=== PATIENT | female | born 1980 | race Caucasian/White ===

== ENCOUNTER → 2024-05-03 | Outpatient (CLI) | payer MEDICAID, SELFPAY ==
--- NOTE | 2024-05-03 08:23 | RAD_ITS ---
PROCEDURE: SMALL BOWEL SERIES DATE OF EXAMINATION: May 03, 2024. INDICATION: Female, 44 years old. Crohn''s disease. PHYSICIAN: Jose Riggins M.D. FLUOROSCOPY TIME (if supplied): (0:09) minutes/seconds. 24.5 mGy.. 11 images were submitted. TECHNIQUE: Radiographic and fluoroscopic images were taken of the small intestine following the ingestion of barium. COMPARISON: None. FINDINGS: A preliminary supine KUB was obtained. There is an unremarkable bowel gas pattern. Fecal material is present throughout the colon. Phleboliths are present within the pelvis. The lung bases are unremarkable. The osseous structures are normal. The patient orally ingested approximately 12 ounces of thin barium Normal visualized fundus, body, and antrum of the stomach. Normal duodenal bulb, C-loop, and proximal jejunum. Normal visualized mucosal folds of the jejunum and ileum. There are no demonstrated dilatations, strictures, or masses of the small intestine. There is no mass displacement of the loops of small intestine. There is a normal motor pattern with barium reaching the colon within approximately 60 minutes. Spot films under fluoroscopic observation demonstrated segmental circumferential narrowing of the distal and terminal ileum with evidence of a separation of small bowel loops and the ulcerations of the terminal ileum. Findings are in keeping with the terminal ileitis and Crohn''s disease. RAD/Small Bowel Series Only IMPRESSION: Circumferential narrowing with abnormal mucosal appearance and the ulcerations with separation of bowel loops in the right lower quadrant in keeping with the patient''s diagnosis of Crohn''s disease. Electronically Signed: Jose Riggins MD at 10:57 EDT ,
== END | disposition home or self-care (01) ==
LOC: RAD 08:21
DX: K50.90 Crohn's disease, unspecified, without complications (principal)
CPT/HCPCS: 74250

== ENCOUNTER 2024-08-24 22:42 | Emergency (ER) | payer MEDICAID, SELFPAY ==
[2024-08-24 22:42] VITALS: BP 165/88; PULSE 83; RESP 16; TEMP 36.5; O2SAT 100; BMI 27.4
[2024-08-25] MEDS: Metoclopramide 10 MG/2 ML Vial 5 MG IV (00:25)
[2024-08-25] MEDS: Ketorolac 15 MG/ML Vial IV (00:25)
[2024-08-25] MEDS: dexAMETHasone 4 MG/ML Vial IV (00:25)
[2024-08-25] MEDS: 0.9% Normal Saline (500mL Bag) 500 ML 999 ML IV (00:26)
--- NOTE | 2024-08-25 01:00 | EX.ED.DYSGE1 ---
HPI History of Present Illness Chief Complaint: Headache [facility] Medical History (Updated 08/25/24 @ 00:05 by Marcelina Tang) Crohn disease Home Medications ?Medication ?Instructions ?Recorded ?Last Taken ?Type NK 08/25/24 Unknown History metoclopramide HCl 5 mg tablet 5 mg PO Q8H PRN PRN nausea and 08/25/24 Unknown Rx (Reglan) vomiting #10 tabs Allergy/AdvReac Type Severity Reaction Status Date / Time ondansetron (From Zofran) AdvReac LONG QT Verified 08/25/24 00:24 Social History Smoking Status: Heavy Smoker (>10/day) EXAM Physical Exam Const Vital Signs: 08/24/24 22:42 Temperature 97.7 F L Temperature Source Oral Pulse Rate 83 Respiratory Rate 16 Blood Pressure 165/88 H Blood Pressure Mean 113 Pulse Ox 100 Oxygen Delivery Method Room Air [facility] [place] Narr[place] Medical decision making narrative: HISTORY OF PRESENT ILLNESS: 44year old female presents with headache. No severe right-sided headache that came on gradually 1 week ago. Denies neck stiffness, neck pain, fever. Denies falls or trauma. Denies family or personal history of brain aneurysms. Patient denies sudden onset or thunderclap headache, denies maximal intensity within 1 minute, vomiting, neck pain or stiffness, changes in vision, fever, history malignancy, syncope, seizures. REVIEW OF SYSTEMS: All other systems reviewed and are negative except as noted in the history of present illness. At least 10 review of systems reviewed and are negative except as noted in history of present illness. PHYSICAL EXAM: Nursing triage notes reviewed, Vital signs reviewed Constitutional: please see [facility] HENT: MMM Eyes: Pupils equal round and reactive to light, Extraocular muscles intact Neck: No stridor, no JVD, full neck ROM, no carotid bruits Lungs: Clear to auscultation, No wheezing or rales. No increased work of breathing, no conversational dyspnea, no accessory muscle use, no nasal flaring. No respiratory distress noted Heart: Regular rate and rhythm, No murmurs, No rubs and No gallops, 2+ distal pulses (radial, femoral, posterior tibial) in all extremities Abdomen: Soft, there is no tenderness, rigidity, rebound or guarding, no obvious peritoneal signs, no palpable pulsatile abdominal masses, no auscultated abdominal bruit : No CVAT Extremities: No edema Neuro: Alert and oriented x3, neuro exam at baseline, cranial nerves II through XII are intact. No pain with extraocular muscle movement. There is negative test of skew. Normal speech. 5 of 5 strength in upper and lower extremities in flexion extension. Intact sensation to light touch in upper and lower extremity dermatomes. No truncal or extremity ataxia. No dysdiadochokinesia. Normal gait. 2+ reflexes. No meningeal signs. Negative Babinski. NIH of 0 Skin: No rash or lesions noted MEDICAL DECISION MAKING: Chief Complaint: Headache External records reviewed: none Factors affecting care: none Social determinants of health: none History obtained from others: none Consults: none ALL IMAGES (IF OBTAINED) HAVE BEEN PERSONALLY REVIEWED AND INTERPRETED BY MYSELF. MDM Narrative: The patient was initially hemodynamically stable, afebrile and nontoxic-appearing. Exam without focal neurologic deficits. No stigmata of meningitis, carotid artery dissection, subarachnoid hemorrhage or other ICH. I considered the following differential diagnosis: Subarachnoid hemorrhage, epidural hematoma, ICH, meningitis, carotid artery dissection, primary headache (primary headache, migraine, tension headache, cluster headache) Patient was initially treated with IV Reglan, Toradol, fluids and Decadron. She noted symptomatic improvement after these interventions. The patient looks great and is in no significant objective discomfort currently. The patient's headache is non-specific. Exam is unremarkable. The patient is in no distress and the patient?s neurological exam is non-focal, neck is supple and without meningismus. The headache is not consistent with meningitis or infection, nor is it consistent with intracranial bleed (SAH etc.), carotid dissection, nor mass by history and examination. Medication and outpatient follow-up was instructed. The patient was instructed to return as needed or if symptoms changed or worsened, fever developed or inability to tolerate fluids. The patient agreed with plan. Gave close neurology follow-up. Wrote a prescription for Reglan. The patient and/or family, caregivers express understanding. The patient and/or family, caregivers agrees with the plan. Total critical care time today provided was at least 0 minutes. This excludes separately billable procedures. Critical care time (if documented) is secondary to the patient having high probability of clinically significant/life threatening deterioration in the patient's condition which required my urgent intervention. Shared decision making: I will have a discussion with the patient and or visitors regarding risk/benefits of further testing or admission. They will be made aware of of the risk/benefits inherent in this decision they will be given the opportunity to voice understanding. Impression: 1. Acute Headache 2. Cluster headache Disposition: Discharge home This note was generated with Loggly dictation software. It may contain incorrect words, spelling, and punctuation that were not noted in review of the chart prior to signing. Discharge Plan Triage Chief Complaint: Headache ED Provider: Jose Ferraro Dx/Rx/DC Orders Instructions: ED Headache, Cluster Prescriptions: New metoclopramide HCl [Reglan] 5 mg tablet 5 mg PO Q8H PRN PRN (Reason: nausea and vomiting) Qty: 10 0RF No Action NK Primary Care Provider: Care Physician,No Primary Referrals: Hesham Gil MD [Non-Staff] - Activity Restrictions/Additional Instructions: Thank you for trusting us with your care today! Your presentation today is likely secondary to cluster headache Please take Tylenol (2 pills, 650 mg), ibuprofen (2 pills, 400 mg) every 6 hours as needed for pain and fever control. Please take Reglan as needed for breakthrough headache if the above regimen does not control your symptoms Please return to the emergency department if your symptoms change or worsen. Specifically develop loss of vision, slurred speech, facial drooping, difficulty with movement or sensation in your arms or legs, difficulty with coordination Please follow with your primary care physician and/or neurology (Dr. Gil) for further outpatient evaluation and management. Print Language: Uzbek Disposition Disposition: Home, Self Care
[2024-08-25 01:09] VITALS: BP 126/84; PULSE 69; RESP 17; TEMP 36.8; O2SAT 99
== END 2024-08-25 01:10 | disposition home or self-care (01) ==
PROVIDERS: Emergency Provider Emergency Medicine; Visit Provider Emergency Medicine
DX: G44.009 Cluster headache syndrome, unspecified, not intractable (principal); K50.90 Crohn's disease, unspecified, without complications; F17.200 Nicotine dependence, unspecified, uncomplicated
CPT/HCPCS: 96374; 96375; 99283

== ENCOUNTER → 2024-10-16 | Outpatient (CLI) | payer MEDICAID, SELFPAY ==
[2024-10-16 14:37] LABS: Absolute Lymphocyte Count 2.26 X10^3/uL (0.83-4.51); Basophil# 0.06 X10^3/uL; Basophil% 0.7 % (0-1); Eosinophils% 1.1 % (0-5); Hematocrit 41.5 % (37-47); Hemoglobin 13.6 g/dL (12.0-15.0); Lymphocyte # 2.26 X10^3/ul (0.83-4.51); Lymphocyte % 25.1 % (19-41); Mean Corp Hgb Conc 32.8 g/dL (32-36); Mean Corpuscular Hgb 28.8 pg (27.0-32.0); Mean Corpuscular Volume 87.7 fL (81-99); Mean Platelet Vol. 10.8 fl (6.2-12.0); Monocyte# 0.56 X10^3/uL; Monocyte% 6.2 % (0-10); NRBC Flagged by Analyzer 0 % (0-5); Neutrophil # 5.98 X10^3/uL (2.7-7.7); Neutrophil % 66.6 % (47-70); Platelet Count 319 K/mm3 (150-450); RBC Distribution Width CV 13.7 % (11.6-14.6); RBC Distribution Width SD 44.1 fl (35.1-43.9); Red Blood Count 4.73 M/mm3 (4.2-5.4)
[2024-10-16 14:59] LABS: Erythrocyte Sedimentation Rate 19 mm/hr (0-30)
[2024-10-16 15:09] LABS: ALB/GLOB Ratio 0.9 RATIO (0.9-2.4); AST(SGOT) 14 U/L (15-37); Alanine Aminotransfer ALT/SGPT 16 U/L (13-56); Albumin, Serum 3.7 g/dL (3.2-5.0); Alkaline Phosphatase 69 U/L (45-117); Anion Gap 7 (5-15); BUN 7 mg/dL (7-18); BUN/Creat Ratio 8.8 RATIO (10-20); CRP 3.46 mg/L (0.0-3.0); Calcium,Total 9.1 mg/dL (8.5-10.1); Chloride 104 mmol/L (98-107); Creatinine, Serum 0.79 mg/dL (0.55-1.02); EST Glomerular Filtration Rate 85 mL/min (>60); Est Glom Filt Rate - Afr Amer 102 mL/min (>60); Glucose 81 mg/dL (74-106); Protein, Total 7.7 g/dL (6.4-8.2); Sodium Level 137 mmol/L (136-145)
== END | disposition home or self-care (01) ==
LOC: LAB 14:09
DX: K50.90 Crohn's disease, unspecified, without complications (principal)
CPT/HCPCS: 36415; 80053; 85025; 85652; 86140

== ENCOUNTER → 2024-10-17 | Outpatient (CLI) | payer MEDICAID, SELFPAY ==
[2024-10-19 07:07] LABS: Calprotectin, Stool 593 ug/g (0-120)
== END | disposition home or self-care (01) ==
LOC: LABSPEC 08:52
DX: K50.90 Crohn's disease, unspecified, without complications (principal)
CPT/HCPCS: 83993

== ENCOUNTER → 2024-11-07 | Outpatient (CLI) | payer MEDICAID, SELFPAY ==
[2024-11-14 12:08] LABS: QNTFERON TB Mitogen Value > 10.00 IU/mL (.); QNTFERON TB Nil Value 0.03 IU/mL (.); QNTFERON TB1+ Ag Value 0.02 IU/mL (.); QNTFERON TB2+ Ag Value 0.04 IU/mL (.); QNTIFERON TB Positive Criteria Negative (Negative)
== END | disposition home or self-care (01) ==
LOC: LAB 14:20
DX: K50.812 Crohn's disease of both small and large intestine with intestinal obstruction (principal); K50.012 Crohn's disease of small intestine with intestinal obstruction
CPT/HCPCS: 86480

== ENCOUNTER → 2024-11-14 | Outpatient (CLI) | payer MEDICAID, SELFPAY ==
--- NOTE | 2024-11-14 10:18 | MRI_ITS ---
PROCEDURE: ENTEROGRAPHY ABD/PEL ([facility]) 11/14/2024 REASON FOR EXAM: K50.00 - CROHN'S DISEASE OF SMALL INTESTINE WITHOUT COMPLICATIONS TECHNIQUE: Multisequence multiplanar MRI of the abdomen and pelvis was performed with and without IV contrast. IV contrast: 16 mL Clariscan PO contrast: Administered, type and volume information not provided. COMPARISON: None FINDINGS: Note that the exam was optimized for evaluation of the bowel rather than the remaining abdominopelvic viscera. Note also that dynamic T2 and diffusion sequences were note that not performed. Liver: Tiny T2 bright enhancing structure in segment IVb, presumed flash filling hemangioma but incompletely evaluated on nondedicated assessment. Spleen: Unremarkable. Gallbladder: Layering likely sludge. Pancreas: Unremarkable. Adrenals: Unremarkable. Kidneys: Unremarkable. Bowel: Long roughly 14 cm segment of narrowing and mild and moderate T2 intermediate to dark eccentric wall thickening along the distal/terminal ileum extending to the ileocecal valve, up to 6-8 mm in thickness, with areas of pseudosacculation versus a 1.1 cm diverticulum. No upstream dilatation. This segment demonstrates early hyperemia. There is trace adjacent free fluid without convincing mesenteric edema. Mild vascular engorgement with a comb sign. No other areas of abnormal enhancement or wall thickening identified. No definite evidence of penetrating disease such as fistulization or abscess. Unremarkable appendix. Lymph nodes: Unremarkable. Vasculature: Unremarkable. Peritoneum: As above.. Bladder: Decompressed and suboptimally evaluated, grossly unremarkable.. Reproductive Organs: Peripherally enhancing 2.4 cm LEFT adnexal likely corpus luteal cyst. RIGHT adnexal 1.4 cm presumed physiologic cyst/dominant follicle. Body Wall: Unremarkable. Bones: Mildly heterogeneous marrow signal, nonspecific. MRI/Enterography Abd/Pel IMPRESSION: 1. Long roughly 14 cm segment of distal/terminal extending to the ileocecal arnoldo ve demonstrating mild and moderate wall thickening with signal characteristics suggestive of at least mild active inflammation inc luding trace adjacent fluid. Appearance suggest the presence of a stricture, however there is no upstream dilatation to confirm this or suggest obstruction. Findings would optimally be evaluated endoscopically. No definite evidence of penetrating dis ease such as fistulization or abscess. 2. Additional description as above. Reading Location: [id number]
[2024-11-14 10:41] VITALS: BP 107/56; PULSE 74; RESP 18; O2SAT 98; BMI 27.3
[2024-11-14] MEDS: 0.9% Saline Lock 10 ML Syringe IV (11:10)
[2024-11-14] MEDS: Glucagon 1 MG/ML Syringe IV (11:54)
[2024-11-14 12:10] VITALS: BP 115/67; PULSE 69; RESP 18; O2SAT 98
== END | disposition home or self-care (01) ==
LOC: MRI 10:04
PROVIDERS: PCP Internal Medicine
DX: K50.90 Crohn's disease, unspecified, without complications (principal)
CPT/HCPCS: 74183; 96374; A9575; A4216; J1610

== ENCOUNTER → 2024-11-26 | Outpatient (CLI) | payer MEDICAID, SELFPAY ==
--- NOTE | 2024-11-26 08:00 | BI_ITS ---
EXAM: SCRN MAMM (CAD)W/DOROTHEA BILAT DATE: 11/26/2024 CLINICAL HISTORY: F, Age 44 y/o , BREAST CANCER SCREENING BREAST CANCER RISK ASSESSMENT: Has not been calculated. TECHNIQUE: Bilateral screening digital breast tomosynthesis with 2D and 3D images. Computer aided detection. COMPARISON: Prior exam(s) dated 03/14/2018. FINDINGS: TISSUE DENSITY: The breast tissue is composed of scattered area of fibroglandular density. Bilateral Breast Mammographic Findings: No suspicious masses, suspicious clustered microcalcifications, architectural distortion, or secondary sign of malignancy is identified in either breast. Stable focal fibroglandular densities are seen in both breasts. BI/SCRN MAMM (CAD)W/DOROTHEA BILAT IMPRESSION: Right Breast: BIRADS 2 BENIGN FINDING. Left Breast: BIRADS 2 BENIGN FINDING. OVERALL FINAL ASSESSMENT: BIRADS 2 BENIGN FINDING RECOMMENDATION: Routine annual follow-up in 1 Year A letter with findings and recommendations will be mailed to the patient. Reading Location: [id number]
== END | disposition home or self-care (01) ==
LOC: OPBI 08:02
PROVIDERS: PCP Internal Medicine; Referring Provider Internal Medicine; Visit Provider Internal Medicine
DX: Z12.31 Encounter for screening mammogram for malignant neoplasm of breast (principal)
CPT/HCPCS: 77063; 77067

== ENCOUNTER 2024-12-24 11:24 | Day surgery (SDC) | payer MEDICAID, SELFPAY ==
[2024-12-24] VITALS (7 sets, daily range): BP systolic 90–113; BP diastolic 55–67; PULSE 66–77; RESP 12–18; TEMP 35.8–36.6; O2SAT 97–100; BMI 26.2
--- NOTE | 2024-12-24 11:29 | PCM.HP.STD ---
HPI - General General Date of Admission: 12/24/24 Date of Service: 12/24/24 Chief Complaint: Crohn's disease HPI Narrative 44 F who presents to the office today for establishment with [facility] for chronic management of Crohn's Disease and current complaints of diarrhea. She reports eating a low fiber diet to control bloating, RLQ abdominal pain and some diarrhea; reports she has nausea on an empty stomach. She denies difficulty chewing and swallowing, reflux, heartburn, emesis, constipation, hematochezia, melena and hemorrhoids. Last colonoscopy 04.16.22 showed stricture with lesions at terminal ileum and ileitis, inability to pass endoscope, and pathology at descending colon showing active chronic colitis and active proctitis; recommended repeat colonoscopy in 2 years. Small bowel x-ray done on 05.03.24 showing circumferential narrowing with abnormal mucosal appearance and the ulcerations with separation of bowel loops in the right lower quadrant in keeping with the patient's diagnosis of Crohn's disease; was placed on month-long taper of prednisone. Pharmacological management has included: Humira, Entyvio, mesalamine, Rinvoq 04/20; noted several burst doses of prednisone in history. She reports best symptom management with Entyvio. She states that episodes of watery, mucus stools are 4-5 times on a good day and over 12 on a bad day with stress. She reports having had a single episode of small bowel obstruction in 2022, treated with rest and liquid diet only. Last EGD more than 6 years ago, diagnosed gastritis. [facility] Medical History Wears glasses Wears contact lenses History of ulceration Gastric reflux Heartburn History of Crohn's disease Smoker Tobacco abuse counseling Lumbar radiculopathy Migraine Dermatitis Neuropathy Hearing loss Health care maintenance Placental abruption High risk due to history of labor Eczema Nodular scleritis Long QT interval PCOS (polycystic ovarian syndrome) Chronic headaches Hormone deficiency Carpal tunnel syndrome Arthritis Alcohol abuse Crohn disease Home Medications ?Medication ?Instructions ?Recorded ?Last Taken ?Type diphenoxylate-atropine 2.5 1 tab PO BID PRN diarrhea #60 tabs 10/15/24 Unknown Rx mg-0.025 mg tablet (Lomotil) acetaminophen 500 mg tablet 500 mg PO Q6H PRN pain 11/08/24 Unknown History (Tylenol Extra Strength) bupropion HCl 100 mg tablet 100 mg PO BID #60 tabs 11/08/24 Unknown Rx dicyclomine 20 mg tablet 20 mg PO BID PRN abdominal pain 11/08/24 Unknown History propranolol 20 mg tablet 20 mg PO BID #60 tabs 11/08/24 Unknown Rx rizatriptan 5 mg tablet See Rx Instructions PO .COMPLEX 11/08/24 Unknown Rx #10 tabs triamcinolone acetonide 0.1 % 1 applic topical BID PRN DERMATITIS 12/21/24 Unknown History topical cream Allergy/AdvReac Type Severity Reaction Status Date / Time No Known Allergies Allergy Verified 12/21/24 09:43 Family History Mother Cervical cancer Grandmother Rheumatoid arthritis Father Hypertension Aunt Uterine cancer Cervical cancer Surgical History History of esophagogastroduodenoscopy (EGD) History of colonoscopy S/P dilation and curettage Social History adopted: No household members: family number of children: 4 current occupational status: employed 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 pets and animals: Yes pets and animals: fish sexually active: No Smoking Status: Current every day smoker tobacco type: cigarettes Tobacco: How many years used: 24 alcohol intake: former year quit: 2021 substance use type: marijuana caffeine: Yes (3-4) Type: coffee frequency: daily do you feel safe at home: Yes ROS Constitutional Constitutional: Denies fatigue, fever(s), poor appetite, weight gain or weight loss Gastrointestinal Gastrointestinal: Denies belching, bloating, change in bowel habits, change in stool character, chewing difficulty, coffee ground emesis, constipation, cramping, diarrhea, dyspepsia, dysphagia, early satiety, excessive flatus, fecal incontinence, heartburn, hematemesis, hematochezia, hemorrhoids, loose stools, melena, nausea, odynophagia, rectal bleeding, tenesmus, vomiting or weight changes Physical Exam Const alert, oriented x3, no apparent distress and healthy appearing General Appearance: cooperative GI normal to inspection, nondistended, normoactive bowel sounds, soft to palpation, non-tender and non-distended Percussion: normal to percussion Rectal Exam: deferred Assessment & Plan Assessment/Plan (1) Ileitis, terminal: QUALIFIERS: Digestive disease complication type: with intestinal obstruction Qualified Code(s): K50.012 - Crohn's disease of small intestine with intestinal obstruction PLAN: Assessment and Plan Assessment and Plan (1) Crohn disease: Status: Chronic Qualifiers: Gastrointestinal tract location: small and large intestine Digestive disease complication type: with intestinal obstruction Qualified Code(s): K50.812 - Crohn's disease of both small and large intestine with intestinal obstruction (2) Ileitis, terminal: Status: Acute Qualifiers: Digestive disease complication type: with intestinal obstruction Qualified Code(s): K50.012 - Crohn's disease of small intestine with intestinal obstruction Orders: Orders CBC W/Diff, Automated Today K50.90 - Crohn's disease, unspecified, without complications CRP Today K50.90 - Crohn's disease, unspecified, without complications Comprehensive Metabolic Profil Today K50.90 - Crohn's disease, unspecified, without complications Erythrocyte Sed Rate Today K50.90 - Crohn's disease, unspecified, without complications Calprotectin, Stool Today K50.90 - Crohn's disease, unspecified, without complications Enterography Abd/Pel Today K50.00 - Crohn's disease of small intestine without complications, K50.90 - Crohn's disease, unspecified, without complications Medications: New clindamycin HCl Take with a probiotic daily. 300 mg PO Q6H 28 caps 0RF Ileitis 7 days prednisone see taper instructions Days 1-14: 20mg by mouth twice daily Days 15-28: 10mg by mouth twice daily Days 29-42: 10mg by mouth daily 10 mg PO DIRECTED 100 tabs 0RF ileitis, colitis, proctitis dicyclomine 10 mg PO TID PRN 30 caps 1RF abdominal pain diphenoxylate-atropine 2.5-0.025 mg (Lomotil) 1 TAB PO BID PRN 60 tabs 1RF diarrhea Plan HEIDY JENNIFER, is a 44 F who presents to the office today for establishment with [facility] for chronic management of Crohn's Disease and current complaints of diarrhea. Discussed care plan with her: schedule MRE of abdomen/pelvis to investigate additional strictures of bowel and details of terminal ileum schedule EGD for visualization of duodenum intro schedule colonoscopy for visualization of colon and terminal ileum, w/possible dilation of terminal ileum blood for inflammation, infection stool for inflammation start approval process for Entyvio call with testing results office FU 1 wk after scopes Coding Level of Care Code New Pt Off vis,new,level 5 Patient Type New History Comprehensive Exam Detailed Medical Decision Making Moderate Complexity Diagnoses Crohn's disease of both small and large intestine with intestinal obstruction K50.812 Gastrointestinal tract location: small and large intestine Digestive disease complication type: with intestinal obstruction Terminal ileitis, with intestinal obstruction K50.012 Digestive disease complication type: with intestinal obstruction
[2024-12-24 11:47] LABS: Internal QC Validated? YES +Cl - CLEAR BKGD; Pregnancy, Urine Negative Negative
[2024-12-24] MEDS: Lactated Ringers 1,000 ML 15 ML IV (11:57)
--- NOTE | 2024-12-24 12:07 | PCM.PRE.AN2 ---
ASA Classification* ASA Classification ASA Classification: 2 Assessment & Plan Anesthesia* Anesthesia Assessment Anesthesia Assessment: Discussed sedation and/or anesthesia options, risks, benefits, and alternatives with patient/parents/legal guardian/POA. Questions invited. The patient/parents/legal guardian/POA seems to understand and agrees to proceed with anesthesia plan. Reviewed the physical assessment, medical history, allergy history and patient home medications list prior to surgery/procedure/anesthetic and documented any changes. Performed airway and anesthesia risk assessments. Anesthesia Type Anesthesia Type: MAC Anesthesia Focused Assessment* Temperature: 96.5 F Pulse Rate: 66 Blood Pressure: 113/67 Respiratory Rate: 12 Pulse Ox: 100 Airway Assessment Mouth opens: >3 cm Mallampati Score: II Focused Labs Anesthesia Preop lab: CBC WBC 9.0 K/mm3 (4.4-11.0) 10/16/24 14:11 10/16/24 RBC 4.73 M/mm3 (4.2-5.4) 10/16/24 14:11 10/16/24 Hgb 13.6 g/dL (12.0-15.0) 10/16/24 14:11 10/16/24 Hct 41.5 % (37-47) 10/16/24 14:11 10/16/24 Plt Count 319 K/mm3 (150-450) 10/16/24 14:11 10/16/24 CHEMISTRY Potassium 4.0 mmol/L (3.5-5.1) 10/16/24 14:11 10/16/24 Sodium 137 mmol/L (136-145) 10/16/24 14:11 10/16/24 BUN 7 mg/dL (7-18) 10/16/24 14:11 10/16/24 Creatinine 0.79 mg/dL (0.55-1.02) 10/16/24 14:11 10/16/24 Glucose 81 mg/dL (74-106) 10/16/24 14:11 10/16/24 COAG Urine Test Negative Negative 12/24/24 11:36 12/24/24 Pre-Assessment Diagnosis/Proposed Procedure Planned Operative Procedure(s): EGD, CSCOPE Anesthesia History 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 When Was Last Pacemaker Check QUESTION #4 FULL TEXT: You/Your Family Experience fever (hyperthermia) with Anesthesia Last Oral Intake Last Oral intake: Last Oral Intake NPO since 06:30 12/24/24 11:46 Meds taken in AM with sips of water? 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 Female Yes 12/21/24 09:45 HX of Motion Sickness No 12/21/24 09:45 HX of N/V After Surgery No 12/21/24 09:45 Non-Smoker No 12/21/24 09:45 Duration of Surgery greater No 12/21/24 09:45 than 60 minutes Number of Risk Factors 1 12/21/24 09:45 PONV Score Low Risk 12/21/24 09:45 Height & Weight Height & Weight: Anesthesia: Height & Weight Height 5 ft 7 in 12/24/24 11:46 Weight: 75.8 kg 12/24/24 11:46 Body Mass Index (BMI) 26.2 12/24/24 11:46 Respiratory Assessment Respiratory Assessment - 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 Has anyone observed you stop No 12/21/24 09:45 breathing during sleep? STOP Results Negative 12/21/24 09:45 QUESTION #5 FULL TEXT : Do you snore loudly (louder than talking or can be heard through closed doors)? 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 Specify any problems Hx of Preganancy in last 3 N/A 12/21/24 09:45 Months Nurse Filling Out Transfusion NBUCHER 12/21/24 09:45 & Questions: Date: 12/21/24 12/21/24 09:45 Time: 09:46 12/21/24 09:45 Patient unable to answer at this time (ie. 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: /Reproductive Hx- envelope folding machine operator Hx Now No 12/21/24 09:45 Gestational Age (in weeks): EDC: Hx Hx Para Hx Section SAB No 12/21/24 09:45 Active Medications Active Medications: Current Medications Generic Name Dose Route Start Last Admin Trade Name Freq PRN Reason Stop Dose Admin Lactated Ringer's 1,000 mls @ 15 mls/hr 12/24/24 11:45 12/24/24 11:57 IV 15 mls/hr .Q48H MARIO Administration PFSH Medical History Wears glasses Wears contact lenses History of ulceration Gastric reflux Heartburn History of Crohn's disease Smoker Tobacco abuse counseling Lumbar radiculopathy Migraine Dermatitis Neuropathy Hearing loss Health care maintenance Placental abruption High risk due to history of labor Eczema Nodular scleritis Long QT interval PCOS (polycystic ovarian syndrome) Chronic headaches Hormone deficiency Carpal tunnel syndrome Arthritis Alcohol abuse Crohn disease Home Medications ?Medication ?Instructions ?Recorded ?Last Taken ?Type diphenoxylate-atropine 2.5 1 tab PO BID PRN diarrhea #60 tabs 10/15/24 Unknown Rx mg-0.025 mg tablet (Lomotil) acetaminophen 500 mg tablet 500 mg PO Q6H PRN pain 11/08/24 12/23/24 History (Tylenol Extra Strength) bupropion HCl 100 mg tablet 100 mg PO BID #60 tabs 11/08/24 12/24/24 Rx dicyclomine 20 mg tablet 20 mg PO BID PRN abdominal pain 11/08/24 Unknown History propranolol 20 mg tablet 20 mg PO BID #60 tabs 11/08/24 12/24/24 Rx rizatriptan 5 mg tablet See Rx Instructions PO .COMPLEX 11/08/24 Unknown Rx #10 tabs triamcinolone acetonide 0.1 % 1 applic topical BID PRN DERMATITIS 12/21/24 Unknown History topical cream Allergy/AdvReac Type Severity Reaction Status Date / Time No Known Allergies Allergy Verified 12/24/24 11:45 Family History Mother Cervical cancer Grandmother Rheumatoid arthritis Father Hypertension Aunt Uterine cancer Cervical cancer Surgical History History of esophagogastroduodenoscopy (EGD) History of colonoscopy S/P dilation and curettage Social History adopted: No household members: family number of children: 4 current occupational status: employed 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
--- NOTE | 2024-12-24 12:30 | EGD_PTH ---
PATIENT: HEIDY RODRIGUEZ LOC: EN U#:[id number] AGE/SX: 44/F ROOM: RE12/24/[address]: Dr. Getachew Ramon DO : 1980 BED: DIS: 12/24/2024 SPEC #: [id number] RECD: 12/25/24 08:58 STATUS: [place] REServando #: [id number] BENNETT: 12/24/24 12:[address]: Getachew Ramon DEPT: SURGICAL PATHOLOGY RECD BY: Terry Herbert ENTERED: 12/25/24 08:58 SP TYPE: EGD BIOPSY GAIL DR: Dr. Doc Tom MD Tissues: A - Gastric mucous membrane B - Duodenum, NOS C - Ileum, NOS D - COLON BIOPSY Procedures: Surgery Specimen Level IV HEADER OPERATION: Colonoscopy with biopsy, EGD with biopsy PRE-OP DIAGNOSIS: Ileitis, terminal, Crohn's TISSUE SUBMITTED: A- Gastric body biopsy, B- Duodenal biopsy, C- Terminal ileum biopsy,D- Hepatic flexure biopsy MICROSCOPIC DIAGNOSIS A. Stomach, gastric body, biopsy: Colonic mucosa with mild chronic inflammation. Negative for helicobacter-like organisms (H&E). B. Small bowel, duodenum, biopsy: Normal villous architecture with Xena gland hyperplasia. Mildly increased intraepithelial lymphocytes. C. Small bowel, terminal ileum, biopsy: Villous blunting with acute ileitis. No granulomas or dysplasia seen. D. Colon, hepatic flexure, biopsy: Mildly active chronic colitis. No granulomas or dysplasia seen. MICROSCOPIC DESCRIPTION Slides are reviewed. GROSS DESCRIPTION A. Received in fixative is one container labeled with the patient's name and designated Gastric body biopsy. The specimen consists of multiple irregular fragments of light montiel soft tissue that in aggregate measure 0.9 x 0.6 x 0.2 cm. The specimen is totally submitted in one cassette. B. Received in fixative is one container labeled with the patient's name and designated Duodenal biopsy. The specimen consists of multiple irregular fragments of light montiel soft tissue that in aggregate measure 1.2 x 0.5 x 0.2 cm. The specimen is totally submitted in one cassette. C. Received in fixative is one container labeled with the patient's name and designated Temrinal ileum biopsy. The specimen consists of multiple irregular fragments of light montiel soft tissue that in aggregate measure 1.5 x 0.8 x 0.2 cm. The specimen is totally submitted in one cassette. D. Received in fixative is one container labeled with the patient's name and designated Hepatic flexure biopsy. The specimen consists of two irregular fragments of light montiel soft tissue that in aggregate measure 1 x 0.5 x 0.2 cm. The specimen is totally submitted in one cassette. 12/25/2024 CPT:21636w0
--- NOTE | 2024-12-24 12:57 | OP.EGD_ITS ---
Patient Name: Kamilah Vuong Procedure Date: 12/24/2024 12:31 PM Date of : 1980 Age: 44 Procedure: Upper GI endoscopy Indications: Epigastric abdominal pain Providers: Getachew Ramon DO Referring MD: Doc Tom MD Medicines: Monitored Anesthesia Care Patient Profile: This is a 44 year old female. Refer to note in patient chart for documentation of history and physical. Patient has symptoms of chronic right lower quadrant abdominal pain and chronic epigastric abdominal pain. Complications: No immediate complications. Procedure: Pre-Anesthesia Assessment: - Prior to the procedure, a History and Physical was performed, and patient medications and allergies were reviewed. The patient is competent. The risks and benefits of the procedure and the sedation options and risks were discussed with the patient. All questions were answered and informed consent was obtained. Patient identification and proposed procedure were verified by the physician in the pre-procedure area. Mental Status Examination: alert and oriented. Airway Examination: normal oropharyngeal airway and neck mobility. Respiratory Examination: clear to auscultation. CV Examination: normal. Prophylactic Antibiotics: The patient does not require prophylactic antibiotics. Prior Anticoagulants: The patient has taken no anticoagulant or antiplatelet agents except for NSAID medication. ASA Grade Assessment: II - A patient with mild systemic disease. After reviewing the risks and benefits, the patient was deemed in satisfactory condition to undergo the procedure. The anesthesia plan was to use monitored anesthesia care (MAC). Immediately prior to administration of medications, the patient was re-assessed for adequacy to receive sedatives. The heart rate, respiratory rate, oxygen saturations, blood pressure, adequacy of pulmonary ventilation, and response to care were monitored throughout the procedure. The physical status of the patient was re-assessed after the procedure. After obtaining informed consent, the endoscope was passed under direct vision. Throughout the procedure, the patient's blood pressure, pulse, and oxygen saturations were monitored continuously. The colonoscope was introduced through the mouth, and advanced to the fourth part of the duodenum. Small bowel enteroscopy was deemed necessary. The upper GI endoscopy was accomplished without difficulty. The patient tolerated the procedure well. Scope In: 12:38:45 PM Scope Out: 12:41:46 PM Total Procedure Duration Time 0 hours 3 minutes 1 second Findings: The examined esophagus was normal. Patchy mildly erythematous mucosa without bleeding was found in the gastric body. Biopsies were taken with a cold forceps for histology. Biopsies were taken with a cold forceps for Helicobacter pylori testing. Verification of patient identification for the specimen was done. Estimated blood loss was minimal. No gross lesions were noted in the entire examined duodenum. Biopsies were taken with a cold forceps for histology. Verification of patient identification for the specimen was done. Estimated blood loss was minimal. A small hiatal hernia was present. Impression: - Normal esophagus. - Erythematous mucosa in the gastric body. Biopsied. - No gross lesions in the entire examined duodenum. Recommendation: - Discharge patient to home. - Resume previous diet. - Continue present medications. - Await pathology results. Procedure Code(s): --- Professional --- 51480, Small intestinal endoscopy, enteroscopy beyond second portion of duodenum, not including ileum; with biopsy, single or multiple CPT copyright 2021 [employer]. All rights reserved. The codes documented in this report are preliminary and upon healthcare recruiter review may be revised to meet current compliance requirements. Getachew Ramon DO 12/24/2024 12:57:15 PM This report has been signed electronically. Number of Addenda: 0 Note Initiated On: 12/24/2024 12:31 PM
--- NOTE | 2024-12-24 12:58 | OP.CCLET_ITS ---
12/24/2024 Doc Tom MD [address] [place] [address] [place] [address] Re : Upper GI endoscopy procedure for Kamilah Vuong Dear Dr. Tom This procedure was performed on Tuesday, December 24, 2024. My impressions and recommendations are as follows: Impressions : - Normal esophagus. - Erythematous mucosa in the gastric body. Biopsied. - No gross lesions in the entire examined duodenum. Recommendations : - Discharge patient to home. - Resume previous diet. - Continue present medications. - Await pathology results. My findings are described in the full procedure note, which is enclosed. If I can be of further assistance, please feel free to contact me at . Sincerely, Getachew Ramon, 12/24/2024 12:57:15 PM This report has been signed electronically.
--- NOTE | 2024-12-24 13:01 | OP.COLON_ITS ---
Patient Name: Kamilah Vuong Procedure Date: 12/24/2024 12:41 PM Date of : 1980 Age: 44 Procedure: Colonoscopy Indications: Crohn's disease of the small bowel and colon, Disease activity assessment of Crohn's disease of the small bowel and colon, Assess therapeutic response to therapy of Crohn's disease of the small bowel and colon Providers: Getachew Ramon DO Referring MD: Doc Tom MD Medicines: Monitored Anesthesia Care Patient Profile: This is a 44 year old female. Refer to note in patient chart for documentation of history and physical. Patient has symptoms of chronic right lower quadrant abdominal pain and chronic epigastric abdominal pain. Last Colonoscopy: 3 years ago. Complications: No immediate complications. Procedure: Pre-Anesthesia Assessment: - Prior to the procedure, a History and Physical was performed, and patient medications and allergies were reviewed. The patient is competent. The risks and benefits of the procedure and the sedation options and risks were discussed with the patient. All questions were answered and informed consent was obtained. Patient identification and proposed procedure were verified by the physician in the pre-procedure area. Mental Status Examination: alert and oriented. Airway Examination: normal oropharyngeal airway and neck mobility. Respiratory Examination: clear to auscultation. CV Examination: normal. Prophylactic Antibiotics: The patient does not require prophylactic antibiotics. Prior Anticoagulants: The patient has taken no anticoagulant or antiplatelet agents except for NSAID medication. ASA Grade Assessment: II - A patient with mild systemic disease. After reviewing the risks and benefits, the patient was deemed in satisfactory condition to undergo the procedure. The anesthesia plan was to use monitored anesthesia care (MAC). Immediately prior to administration of medications, the patient was re-assessed for adequacy to receive sedatives. The heart rate, respiratory rate, oxygen saturations, blood pressure, adequacy of pulmonary ventilation, and response to care were monitored throughout the procedure. The physical status of the patient was re-assessed after the procedure. After I obtained informed consent, the scope was passed under direct vision. Throughout the procedure, the patient's blood pressure, pulse, and oxygen saturations were monitored continuously. The colonoscope was introduced through the anus and advanced to the terminal ileum. The colonoscopy was performed without difficulty. The patient tolerated the procedure well. The quality of the bowel preparation was adequate. The terminal ileum, ileocecal valve, appendiceal orifice, and rectum were photographed. Scope In: 12:43:33 PM Scope Withdrawal Time 0 hours 7 minutes 37 seconds Scope Out: 12:53:25 PM Total Procedure Duration Time 0 hours 9 minutes 52 seconds Findings: The perianal and digital rectal examinations were normal. The Simple Endoscopic Score for Crohn's Disease was determined based on the endoscopic appearance of the mucosa in the following segments: - Ileum: Findings include ulcers greater than 2 cm in size, greater than 30% ulcerated surfaces, greater than 75% of surfaces affected, narrowing(s) that cannot be passed and no ulcers present, no ulcerated surfaces, no affected surfaces and no narrowings. Segment score: 12. - Right Colon: Findings include no ulcers present, no ulcerated surfaces, no affected surfaces, no narrowings and no ulcers present, no ulcerated surfaces, no affected surfaces and no narrowings. Segment score: 0. - Transverse Colon: Findings include no ulcers present, no ulcerated surfaces, no affected surfaces and no narrowings. Segment score: 0. - Left Colon: Findings include no ulcers present, no ulcerated surfaces, less than 50% of surfaces affected and a single narrowing that can be passed. Segment score: 2. - Rectum: Findings include no ulcers present, no ulcerated surfaces, no affected surfaces, no narrowings and no ulcers present, no ulcerated surfaces, no affected surfaces and no narrowings. Segment score: 0. - Total SES-CD aggregate score: 14. Biopsies were taken with a cold forceps for histology. Verification of patient identification for the specimen was done. Estimated blood loss was minimal. Impression: - Simple Endoscopic Score for Crohn's Disease: 14, mucosal inflammatory changes secondary to Crohn's disease. Biopsied. Recommendation: - Discharge patient to home. - Resume previous diet. - Continue present medications. - Await pathology results. - Repeat colonoscopy is recommended for surveillance. The colonoscopy date will be determined after pathology results from today's exam become available for review. Procedure Code(s): --- Professional --- 84769, Colonoscopy, flexible; with biopsy, single or multiple CPT copyright 2021 [employer]. All rights reserved. The codes documented in this report are preliminary and upon meat processor review may be revised to meet current compliance requirements. Getachew Ramon DO 12/24/2024 1:00:40 PM This report has been signed electronically. Number of Addenda: 0 Note Initiated On: 12/24/2024 12:41 PM
--- NOTE | 2024-12-24 13:01 | OP.CCLET_ITS ---
12/24/2024 Doc Tom MD [address] [place] [address] [place] [address] Re : Colonoscopy procedure for Kamilah Vuong Dear Dr. Tom This procedure was performed on Tuesday, December 24, 2024. My impressions and recommendations are as follows: Impressions : - Simple Endoscopic Score for Crohn's Disease: 14, mucosal inflammatory changes secondary to Crohn's disease. Biopsied. Recommendations : - Discharge patient to home. - Resume previous diet. - Continue present medications. - Await pathology results. - Repeat colonoscopy is recommended for surveillance. The colonoscopy date will be determined after pathology results from today's exam become available for review. My findings are described in the full procedure note, which is enclosed. If I can be of further assistance, please feel free to contact me at . Sincerely, Getachew Ramon, 12/24/2024 1:00:40 PM This report has been signed electronically.
--- NOTE | 2024-12-24 13:04 | PCM.POST.ANE ---
Anesthesia: Postop Eval I Current Vital Signs Temperature: 97.2 F Pulse Rate: 77 Blood Pressure: 90/55 Respiratory Rate: 16 Pulse Ox: 98 Oxygen Delivery Method: Room Air Assessment Airway patent: Yes Spontaneous unlabored respirations: Yes Mental status: Awake and Calm nausea: No Vomiting: No Anesthesia Complication: No Fluid Hydration Crystalloid volume administer (ml): 500 Total IV fluid infused: 500 Progress Note Anesthesia document: Postop Eval 1 completed: Yes
--- NOTE | 2024-12-24 13:08 | PCM.POSTANE2 ---
Anesthesia Postop Eval I Sum Postop Eval Completion status Anesthesia document: Postop Eval 1 completed: Yes Anesthesia Postop Eval I Summary Anesthesia Postop Eval I Summary: Anesthesia Postop Eval I: Assessment Summary Airway patent Yes 12/24/24 13:05 [email or web address] Spontaneous unlabored Yes 12/24/24 13:05 [email or web address] respirations Mental status Awake,Calm 12/24/24 13:05 [email or web address] nausea No 12/24/24 13:05 [email or web address] Vomiting No 12/24/24 13:05 [email or web address] Anesthesia Postop Eval I: Fluid Summary Crystalloid volume administer 500 12/24/24 13:05 [email or web address] (ml) Colloids volume administered ( ml) Blood Product volume administered (ml) Total IV fluid infused 500 12/24/24 13:05 [email or web address] Anesthesia Postop Eval I: Summary Notes Anesthesia Complication No 12/24/24 13:05 [email or web address] Anesthesia Complication Comment: Post-operative progress note Anesthesia: Postop Eval II Evaluation Mental status: Awake Pain Level: 0 nausea: No Vomiting: No
== END 2024-12-24 13:37 | disposition home or self-care (01) ==
LOC: EN 11:25 → AC 11:26
PROVIDERS: Anesthesiology; PCP Internal Medicine; Referring Provider Internal Medicine; Visit Provider Internal Medicine Gastroenterology
PROC: 0DJD8ZZ Inspection of Lower Intestinal Tract, Via Natural or Artificial Opening Endoscopic (ICD-10-PCS; CPT 45378; principal; 2024-12-24 12:25)
DX: K50.90 Crohn's disease, unspecified, without complications (principal); F17.210 Nicotine dependence, cigarettes, uncomplicated; K31.89 Other diseases of stomach and duodenum; K44.9 Diaphragmatic hernia without obstruction or gangrene; Z79.899 Other long term (current) drug therapy
CPT/HCPCS: 45380; 43239; 81025; 88305; J2405

== ENCOUNTER → 2025-04-30 | Outpatient (CLI) | payer MEDICAID, SELFPAY ==
[2025-05-02 09:08] LABS: HPV APTIMA, High Risk Negative (Negative)
== END | disposition home or self-care (01) ==
LOC: LABSPEC 11:49
PROVIDERS: PCP Internal Medicine; Visit Provider Obstetrics & Gynecology
DX: Z12.4 Encounter for screening for malignant neoplasm of cervix (principal)
CPT/HCPCS: 87624; 88175; G0145

== ENCOUNTER → 2025-05-28 | Outpatient (CLI) | payer MEDICAID, SELFPAY ==
[2025-05-28 16:39] LABS: Hematocrit 41.1 % (37-47); Hemoglobin 13.9 g/dL (12.0-15.0); Immature Granulocytes Count 0.020 X10^3/uL (0.0-0.0); Mean Corp Hgb Conc 33.8 g/dL (32-36); Mean Corpuscular Volume 85.3 fL (81-99); Mean Platelet Vol. 11.5 fl (6.2-12.0); NRBC Flagged by Analyzer 0 % (0-5); Platelet Count 283 K/mm3 (150-450); RBC Distribution Width CV 13.2 % (11.6-14.6); RBC Distribution Width SD 40.3 fl (35.1-43.9); Red Blood Count 4.82 M/mm3 (4.2-5.4); White Blood Count 8.3 K/mm3 (4.4-11.0)
[2025-05-28 16:59] LABS: CRP 4.77 mg/L (0.0-3.0)
[2025-05-28 17:09] LABS: Vitamin B12 265 pg/mL (180-914)
[2025-05-28 17:54] LABS: AST(SGOT) 15 U/L (<=31); Alanine Aminotransfer ALT/SGPT 9 U/L (<=34); Albumin, Serum 4.3 g/dL (3.5-5.0); Alkaline Phosphatase 57 U/L (35-104); Anion Gap 14 (5-15); BUN 8 mg/dL (4-19); BUN/Creat Ratio 12.6 RATIO (10-20); Calcium,Total 9.1 mg/dL (7.6-11.0); Carbon Dioxide 20.4 mmol/L (21.0-32.0); Chloride 103 mmol/L (98-108); Globulin 2.9 g/dL (2.2-4.2); Glucose 97 mg/dL (70-99); Potassium 3.7 mmol/L (3.3-5.1)
[2025-05-30 12:09] LABS: ANTINUCLEAR ANTIBODIES DIRECT Negative (Negative)
== END | disposition home or self-care (01) ==
LOC: LAB 15:56
PROVIDERS: PCP Internal Medicine; Referring Provider Student in an Organized Health Care Education/Training Program; Visit Provider Student in an Organized Health Care Education/Training Program
DX: K50.012 Crohn's disease of small intestine with intestinal obstruction (principal); M19.90 Unspecified osteoarthritis, unspecified site
CPT/HCPCS: 86225; 36415; 80053; 82607; 85025; 86038; 86140; 86200; 86431

== ENCOUNTER → 2025-07-24 | Outpatient (CLI) | payer MEDICAID, SELFPAY ==
[2025-07-24 11:24] LABS: Hematocrit 44.1 % (37-47); Hemoglobin 14.4 g/dL (12.0-15.0); Immature Granulocytes Count 0.030 X10^3/uL (0.0-0.0); Mean Corp Hgb Conc 32.7 g/dL (32-36); Mean Corpuscular Volume 87.5 fL (81-99); Mean Platelet Vol. 11.4 fl (6.2-12.0); NRBC Flagged by Analyzer 0 % (0-5); Platelet Count 291 K/mm3 (150-450); RBC Distribution Width CV 12.9 % (11.6-14.6); RBC Distribution Width SD 41.1 fl (35.1-43.9); Red Blood Count 5.04 M/mm3 (4.2-5.4); White Blood Count 10.8 K/mm3 (4.4-11.0)
[2025-07-24 12:11] LABS: FOLATES,SERUM (FOLIC ACID) 13.40 ng/mL (4.60-34.80)
[2025-07-24 13:18] LABS: Vitamin B12 298 pg/mL (180-914)
[2025-07-24 13:44] LABS: AST(SGOT) 23 U/L (<=31); Alanine Aminotransfer ALT/SGPT 13 U/L (<=34); Albumin, Serum 4.5 g/dL (3.5-5.0); Alkaline Phosphatase 55 U/L (35-104); Anion Gap 15 (5-15); BUN 7 mg/dL (4-19); BUN/Creat Ratio 9.7 RATIO (10-20); CRP 3.90 mg/L (0.0-3.0); Calcium,Total 9.4 mg/dL (7.6-11.0); Carbon Dioxide 17.9 mmol/L (21.0-32.0); Chloride 103 mmol/L (98-108); Globulin 3.4 g/dL (2.2-4.2); Glucose 94 mg/dL (70-99); LDH 221 U/L (84-246); Magnesium 2.2 mg/dL (1.5-2.2); Potassium 4.0 mmol/L (3.3-5.1)
[2025-07-28 14:07] LABS: Cytoplasmic Ab (C-ANCA) <1:20 titer (Neg:<1:20); IgG, Quant 1116 mg/dL (586-1602); Immunoglobulin A 224 mg/dL (87-352); Immunoglobulin G, Subclass 1 707 mg/dL (248-810); Immunoglobulin G, Subclass 2 238 mg/dL (130-555); Immunoglobulin G, Subclass 3 85 mg/dL (15-102); Immunoglobulin G, Subclass 4 3 mg/dL (2-96); Immunoglobulin M 126 mg/dL (26-217); Perinuclear Ab (P-ANCA) <1:20 titer (Neg:<1:20)
[2025-07-28 16:07] LABS: Anti-Chromatin <0.2 AI (0.0-0.9); Anti-Jo <0.2 AI (0.0-0.9); Anti-dsDNA Ab 1 IU/mL (0-9); Egg, Whole <0.10 kU/L (Class 0); Mussels <0.10 kU/L (Class 0); SJOGREN'S Anti-SS-A test < 0.2 AI (0.0-0.9); SJOGREN'S Anti-SS-B test < 0.2 AI (0.0-0.9)
== END | disposition home or self-care (01) ==
LOC: LAB 10:17
PROVIDERS: PCP Internal Medicine; Referring Provider Internal Medicine Gastroenterology; Visit Provider Internal Medicine Gastroenterology
DX: K50.012 Crohn's disease of small intestine with intestinal obstruction (principal)
CPT/HCPCS: 36415; 80053; 82607; 82746; 82784; 82785; 82787; 83516; 83615; 83735; 85025; 85652; 86003; 86005; 86037; 86140; 86225; 86235; 86255; 86431